=== PATIENT | female | born 1970 | race Caucasian/White ===

== ENCOUNTER 2017-03-07 13:02 | Emergency (ER) | payer MEDICAID ==
[2017-03-07 13:17] VITALS: RESP 16; O2SAT 99
--- NOTE | 2017-03-07 16:35 | EDPHY ---
H & P Stated Complaint: URI sxs ~ 1 mo;congestion in ears,vertigo,subjective fever Time Seen by Provider: 03/07/17 15:59 HPI/ROS: CHIEF COMPLAINT: "I am just really fatigued " HISTORY OF PRESENT ILLNESS: 46-year-old female generally healthy states that for the past 1 month she has been experiencing fatigue, sinus congestion, ear pressure, dizziness. States that this started when she had URI symptoms 1 month ago which progressed to sore throat, sinus congestion check have by enlarged resolved however she continues to have bilateral ear pressure and nonproductive cough. She is concerned about "walking pneumonia ". She describes dizziness however when asked to elaborate on this states that she describes symptoms not consistent with vertigo, describes that she is able to ambulate without assistance, no gait instability, no slurred speech. She denies : Abdominal pain, hearing loss, tinnitus, nausea, vomiting, headache, syncope, near syncope, urinary abnormality, palpitations, headache, head/neck trauma or manipulation, nausea, vomiting, melena, hematochezia, history of thyroid dysfunction, rash. She has been unable to be seen by her PCP PRIMARY CARE PROVIDER:Dr. Emeka Mcgee REVIEW OF SYSTEMS: A ten point review of systems was performed and is negative with the exception of the items mentioned in the HPI PAST MEDICAL & SURGICAL HISTORY: No pertinent medical or surgical history , no history of hospitalization SOCIAL HISTORY:nonsmoker PHYSICAL EXAM (Prior to examination, patient consented to physical exam, hands were washed and my usual and customary physical exam procedures followed) 1) GENERAL: Well-developed, well-nourished, alert and oriented. Appears to be in no acute distress. Answering questions appropriately 2) HEAD: Normocephalic, atraumatic 3) HEENT: Pupils equal, round, reactive to light bilaterally. Sclera anicteric. Nasopharynx, oropharynx, clear, no lesions. No tonsillar enlargement or tonsillar exudate. No trismus no drooling. Ears bilaterally with normal tympanic membranes.No signs of otitis media or externa. No effusion. No otorrhea. 4) NECK: Full range of motion, no meningeal signs. 5) LUNGS: Clear auscultation bilaterally, no wheezes, no rhonchi, no retractions. 6) HEART: Regular rate and rhythm, no murmur, no heave, no gallop. 7) ABDOMEN: No guarding, no rebound, no focal tenderness, negative McBurney's, negative Lacey's, negative Rovsing's, negative peritoneal sign, 8) MUSCULOSKELETAL: Moving all extremities, no focal areas of tenderness, no obvious trauma. No peripheral edema or discoloration. 9) BACK: No CVA tenderness, no midline vertebral tenderness, no fluctuance, no step-off, no obvious trauma, no visual or palpable abnormality. 10) SKIN: No rash, no petechiae. 11) Psychiatric: Patient is oriented X 3, there is no agitation. 12) NEURO: Awake, alert, and oriented to person, place and time. Answers questions appropriately. There were no obvious focal neurologic abnormalities. No cerebellar dysfunction. Cranial nerves 2 through to 12 intact. Normal steady gait. Upper and lower extremities bilaterally with strength 5 / 5, reflexes 2+. DIFFERENTIAL DIAGNOSIS: in no particular order including but limited to hypothyroid, mononucleosis, pneumonia - Personal History LMP (Females 10-55): 8-14 Days Ago Current Tetanus Diphtheria and Acellular Pertussis (TDAP): Yes - Medical/Surgical History Hx Asthma: No Hx Chronic Respiratory Disease: No Hx Diabetes: No Hx Cardiac Disease: No Hx Renal Disease: No Hx Cirrhosis: No Hx Alcoholism: No Hx HIV/AIDS: No Hx Splenectomy or Spleen Trauma: No Other PMH: pmh- ?ibs, anxiety - Social History Smoking Status: Former smoker Constitutional: Initial Vital Signs Temperature (C) 36.9 C 03/07/17 13:10 Heart Rate 76 03/07/17 13:10 Respiratory Rate 16 03/07/17 13:10 Blood Pressure 110/77 03/07/17 13:10 O2 Sat (%) 99 03/07/17 13:10 O2 Delivery Mode Room Air Allergies/Adverse Reactions: penicillin G [Penicillin G] Allergy (Intermediate, Verified 03/07/17 13:08) Hives Home Medications: Medication Instructions Recorded NK [No Known Home Meds] 12/28/13 Medical Decision Making - Diagnostics Imaging Results: Imaging Impressions Chest X-Ray 03/07/17 16:20 Impression: Clear lungs. No acute process. ED Course/Re-evaluation: 5:56 p.m.: Patient has been re-evaluated with serial exams, case discussed with secondary supervising physician Dr Vyas in ER. Patient has a normal chest x-ray showing no pneumonia, normal TSH, no signs of anemia. Monospot pending at this time. I do not think patient needs to wait in the emergency department for these results this would more than likely not change the immediate treatment plan. She has no complaints of abdominal pain left upper quadrant pain no splenomegaly. She has a nonfocal neurologic exam, no cerebellar dysfunction. She has no complaints of headache. I do not think that imaging of the brain currently indicated. Specific etiology of her symptoms is not completely clear at this time however have recommended follow up with her PCP Dr. Emeka Mcgee has given the patient copies of her laboratory studies. She feels comfortable being discharged. All questions and concerns addressed by myself. - Data Points Laboratory Results: Laboratory Results 03/07/17 16:41 03/07/17 16:41 03/07/17 03/07/17 03/07/17 16:41 16:41 16:41 WBC 7.02 10^3/uL 10^3/uL (3.80-9.50) RBC 4.63 10^6/uL 10^6/uL (4.18-5.33) Hgb 14.5 g/dL g/dL (12.6-16.3) Hct 41.9 % % (38.0-47.0) MCV 90.5 fL fL (81.5-99.8) MCH 31.3 pg pg (27.9-34.1) MCHC 34.6 g/dL g/dL (32.4-36.7) RDW 11.9 % % (11.5-15.2) Plt Count 249 10^3/uL 10^3/uL (150-400) MPV 9.7 fL fL (8.7-11.7) Neut % (Auto) 61.0 % % (39.3-74.2) Lymph % (Auto) 30.1 % % (15.0-45.0) [place] % (Auto) 7.3 % % (4.5-13.0) Eos % (Auto) 0.9 % % (0.6-7.6) Baso % (Auto) 0.4 % % (0.3-1.7) Nucleat RBC Rel Count 0.0 % % (0.0-0.2) Absolute Neuts (auto) 4.29 10^3/uL 10^3/uL (1.70-6.50) Absolute Lymphs (auto) 2.11 10^3/uL 10^3/uL (1.00-3.00) Absolute Monos (auto) 0.51 10^3/uL 10^3/uL (0.30-0.80) Absolute Eos (auto) 0.06 10^3/uL 10^3/uL (0.03-0.40) Absolute Basos (auto) 0.03 10^3/uL 10^3/uL (0.02-0.10) Absolute Nucleated RBC 0.00 10^3/uL 10^3/uL (0-0.01) Immature Gran % 0.3 % % (0.0-1.1) Immature Gran # 0.02 10^3/uL 10^3/uL (0.00-0.10) Sodium 135 mEq/L mEq/L (134-144) Potassium 3.7 mEq/L mEq/L (3.5-5.2) Chloride 102 mEq/L mEq/L (97-110) Carbon Dioxide 23 mEq/l mEq/l (22-31) Anion Gap 10 mEq/L mEq/L (8-16) BUN 15 mg/dL mg/dL (7-23) Creatinine 0.8 mg/dL mg/dL (0.6-1.0) Estimated GFR > 60 Glucose 85 mg/dL mg/dL (70-100) Calcium 9.7 mg/dL mg/dL (8.5-10.4) TSH 2.490 uIU/mL uIU/mL (0.465-4.680) Beta HCG, Qual NEGATIVE Urine Color Urine Appearance Urine pH Ur Specific [place] Urine Protein Urine Ketones Urine Blood Urine Nitrate Urine Bilirubin Urine Urobilinogen Ur Leukocyte Esterase Urine RBC Urine WBC Ur Epithelial Cells Ur Renal Epithelial Cell Urine Glucose Monoscreen NEGATIVE (NEGATIVE) 03/07/17 16:40 WBC RBC Hgb Hct MCV MCH MCHC RDW Plt Count MPV Neut % (Auto) Lymph % (Auto) [place] % (Auto) Eos % (Auto) Baso % (Auto) Nucleat RBC Rel Count Absolute Neuts (auto) Absolute Lymphs (auto) Absolute Monos (auto) Absolute Eos (auto) Absolute Basos (auto) Absolute Nucleated RBC Immature Gran % Immature Gran # Sodium Potassium Chloride Carbon Dioxide Anion Gap BUN Creatinine Estimated GFR Glucose Calcium TSH Beta HCG, Qual Urine Color PALE YELLOW Urine Appearance CLEAR Urine pH 6.0 (5.0-7.5) Ur Specific [place] 1.008 (1.002-1.030) Urine Protein NEGATIVE (NEGATIVE) Urine Ketones NEGATIVE (NEGATIVE) Urine Blood NEGATIVE (NEGATIVE) Urine Nitrate NEGATIVE (NEGATIVE) Urine Bilirubin NEGATIVE (NEGATIVE) Urine Urobilinogen NEGATIVE EU EU (0.2-1.0) Ur Leukocyte Esterase NEGATIVE (NEGATIVE) Urine RBC 1-3 /hpf /hpf (0-3) Urine WBC 1-3 /hpf /hpf (0-3) Ur Epithelial Cells TRACE /lpf /lpf (NONE-1+) Ur Renal Epithelial Cell OCCASIONAL /hpf H /hpf (NONE SEEN) Urine Glucose NEGATIVE (NEGATIVE) Monoscreen Departure - Departure Disposition: Home, Routine, Self-Care Clinical Impression: Fatigue Qualifiers: Fatigue type: unspecified Qualified Code(s): R53.83 - Other fatigue Condition: Good Instructions: Fatigue (ED) Referrals: Emeka Mcgee MD [Primary Care Provider] - 2-3 days, call for appt.
[2017-03-07 16:54] LABS: % IMMATURE GRANULYOCYTES 0.3 % (0.0-1.1); ABSOLUTE IMMATURE GRANULOCYTES 0.02 10^3/uL (0.00-0.10); ADD DIFF? NO; ADD MORPH? NO; ADD SCAN? NO; ATYPICAL LYMPHOCYTE FLAG 10 (0-99); FRAGMENT RBC FLAG 0 (0-99); HEMATOCRIT 41.9 % (38.0-47.0); HEMOGLOBIN 14.5 g/dL (12.6-16.3); LEFT SHIFT FLG 0 (0-99); LIPEMIA HEMOLYSIS FLAG 90 (0-99); MEAN CELL HEMOGLOBIN 31.3 pg (27.9-34.1); MEAN CELL HEMOGLOBIN CONCENTR. 34.6 g/dL (32.4-36.7); MEAN CELL VOLUME 90.5 fL (81.5-99.8); MEAN PLATELET VOLUME 9.7 fL (8.7-11.7); PLATELET CLUMPS FLAG 0 (0-99); PLATELET COUNT 249 10^3/uL (150-400); RED BLOOD CELL COUNT 4.63 10^6/uL (4.18-5.33); RED CELL DISTRIBUTION WIDTH 11.9 % (11.5-15.2)
[2017-03-07 16:59] LABS: COLOR PALE YELLOW; LEUKOCYTE ESTERASE,URINE NEGATIVE (NEGATIVE); NITRITE,URINE NEGATIVE (NEGATIVE)
[2017-03-07 17:07] LABS: ANION GAP 10 mEq/L (8-16); CALCIUM 9.7 mg/dL (8.5-10.4); CARBON DIOXIDE 23 mEq/l (22-31); CHLORIDE 102 mEq/L (97-110); CREATININE 0.8 mg/dL (0.6-1.0); GLOMERULAR FILTRATION RATE > 60; GLUCOSE 85 mg/dL (70-100); POTASSIUM 3.7 mEq/L (3.5-5.2); SODIUM 135 mEq/L (134-144)
[2017-03-07 17:11] LABS: BHCG-QUALITATIVE NEGATIVE
[2017-03-07 17:15] LABS: RENAL EPITHELIAL CELLS OCCASIONAL /hpf (NONE SEEN)
[2017-03-07 18:30] VITALS: BP 151/85; PULSE 81; TEMP 99
[2017-03-07 18:57] LABS: MONO TEST NEGATIVE (NEGATIVE)
== END 2017-03-07 18:29 | disposition home or self-care (01) ==
DX: R53.83 Other fatigue (principal); Z87.891 Personal history of nicotine dependence

== ENCOUNTER 2017-11-20 14:13 | Emergency (ER) | payer MEDICAID ==
--- NOTE | 2017-11-20 15:40 | EDPHY ---
H & P Smoking Status: Current some day smoker Time Seen by Provider: 11/20/17 15:21 HPI/ROS: CHIEF COMPLAINT: Left rib pain post "wrestling with fiancee" HISTORY OF PRESENT ILLNESS: 47-year-old female arrives via private vehicle complaining of left anterolateral lower rib pain which occurred few days ago when she was wrestling with her fiance, leaned on him and felt something "pop". She has reproducible pain with palpation. She has been wrapping the area tightly. She applied a salve to the area yesterday which has irritated her skin. She has no dyspnea. PHYSICAL EXAM (Prior to examination, patient consented to physical exam, hands were washed and my usual and customary physical exam procedures followed) 1) GENERAL: Well-developed, well-nourished, alert and oriented. Appears to be in no acute distress. 2) HEAD: Normocephalic 3) HEENT: sclera anicteric 4) LUNGS: Breathing comfortably. Tender to palpation anterior axillary line lower ribs with no crepitus. 5) SKIN: Irritation inferior to the breast which at 1st glance appears possibly secondary to zoster however upon further evaluation appears to be more contact dermatitis in origin. There is no vesicles. No lesions. 6) abdomen: Soft no guarding. Specifically no left upper quadrant pain, no flank pain no splenic pain. (Kayleigh Friedman) Constitutional: Initial Vital Signs Temperature (C) 37.0 C 11/20/17 14:15 Heart Rate 75 11/20/17 14:15 Respiratory Rate 16 11/20/17 14:15 Blood Pressure 119/86 H 11/20/17 14:15 O2 Sat (%) 98 11/20/17 14:15 O2 Delivery Mode Room Air Allergies/Adverse Reactions: penicillin G [Penicillin G] Allergy (Intermediate, Verified 03/07/17 13:08) Hives Home Medications: Medication Instructions Recorded Hydrocodone/APAP 5/325 [[place] 1 tab PO Q6 PRN #10 tab 11/20/17 5/325 (RX)] MDM/Departure - MDM Imaging Results: Images reviewed myself (Kayleigh Friedman) ED Course/Re-evaluation: 3:37 p.m.: Patient is requesting x-rays of her ribs. Patient will be given incentive spirometer. Patient will be given analgesia. Recommended against wrapping/binding. She feels comfortable being discharged. Usual and customary discharge precautions instructions provided. I saw this patient independently based on established practice protocols. Care of patient under supervision of secondary supervising physician Dr Frey . (Kayleigh Friedman) I did not see this patient while she was in the emergency department. However her care was discussed with the PA while the patient was in the department. I agree with treatment plan and management (Maged Frey) - Depart Disposition: Home, Routine, Self-Care Condition: Good Instructions: Rib Fracture (ED) Additional Instructions: Return to the emergency department if you develop worsening pain, if you develop shortness of breath. Do not wrap or by into the area. Use your incentive spirometer every hour while awake Prescriptions: Hydrocodone/APAP 5/325 [[place] 5/325 (RX)] 1 tab PO Q6 PRN #10 tab PRN Reason: Pain, Severe Referrals: Emeka Mcgee MD [Primary Care Provider] - 2-3 days, call for appt.
[2017-11-20 16:34] VITALS: BP 123/68
== END 2017-11-20 16:34 | disposition home or self-care (01) ==
DX: S22.42XA Multiple fractures of ribs, left side, initial encounter for closed fracture (principal); F17.200 Nicotine dependence, unspecified, uncomplicated; X58.XXXA Exposure to other specified factors, initial encounter; Y99.8 Other external cause status; Y93.72 Activity, wrestling